=== PATIENT | male | born 1960 | race Caucasian/White ===

== ENCOUNTER 2020-07-02 07:34 | Outpatient (REF) | payer MEDICARE, SELFPAY ==
[2020-07-02 11:58] LABS: Alanine Aminotransferase 25 U/L (0-40); Albumin Level 4.5 g/dL (3.5-5.0); Alkaline Phosphatase 60 U/L (39-117); Anion Gap 16 (12-20); Aspartate Amino Transferase 27 U/L (5-37); Bilirubin Total 1.4 mg/dL (0.0-1.0); Blood Urea Nitrogen 16 mg/dL (9-16); Calcium 8.6 mg/dL (8.4-10.2); Carbon Dioxide 24 mmol/L (22-29); Chloride 103 mmol/L (96-108); Cholesterol 279 mg/dL; Estimated Glomerular Filt Rate > 60; Glucose Fasting 106 mg/dL (60-99); HDL Cholesterol 75 mg/dL; LDL Cholesterol Calculated 179 mg/dl; Potassium 4.5 mmol/l (3.3-5.1); Sodium 138 mmol/L (135-145); Total Protein 6.8 g/dL (6.5-8.0); Triglycerides 129 mg/dL
[2020-07-02 12:05] LABS: Prostate Specific Antigen Scr 0.69 ng/mL (<0.05-4.0); TSH reflex Free T4 2.83 mIU/mL (0.32-4.0)
== END 2020-07-02 07:35 | disposition home or self-care (01) ==
LOC: HO.HMGCLDS 07:34
PROVIDERS: PCP Nurse Practitioner Family; Visit Provider Nurse Practitioner Family
DX: E78.5 Hyperlipidemia, unspecified (principal); Z12.5 Encounter for screening for malignant neoplasm of prostate; R17 Unspecified jaundice
CPT/HCPCS: 80053; 80061; 84153; 84443

== ENCOUNTER 2020-09-26 10:11 | Outpatient (REF) | payer MEDICARE, MEDICAID, SELFPAY | END 2020-09-26 10:12 | disposition home or self-care (01) | LOC: HO.LAB 10:11 | PROVIDERS: Visit Provider Internal Medicine | DX: Z20.822 Contact with and (suspected) exposure to COVID-19 (principal) | CPT/HCPCS: 36415; C9803; U0003; U0005 ==

== ENCOUNTER 2024-10-19 12:20 | Outpatient (AMB) | payer OTHER, SELFPAY ==
--- NOTE | 2024-10-19 12:23 | A.OFFPC_ITS ---
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 Pt states that he has bot been seen for about 3 years. 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 History of Present Illness The patient is a 64-year-old male presenting with left wrist discomfort. Pain is reported to be ongoing and primarily located on the volar aspect of the wrist, exacerbated by activities that involve manual labor. The patient has a significant history of Dupuytren's contracture affecting both hands, with previous surgical interventions undertaken with only partial correction, as his digits, particularly bilaterally on digits three, four, and five, remain chiefly contracted. 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 Additionally, he reports a history of arthritis but denies having experienced recent falls or fractures affecting the wrist. He maintains a known history of dyslipidemia for which laboratory tests have been requisitioned during this visit. Despite medical advice, he expresses refusal for any colorectal screening. He currently consumes alcoholic beverages such as beer and bourbon, albeit not daily. Social History - Alcohol consumption is reported to be not daily, with a preference for beer or bourbon. Health Maintenance - Laboratory tests ordered for dyslipide magy Review of Systems - Musculoskeletal: Reports left wrist di scomfort - Musculoskeletal: Denies recent falls a nd wrist fractures Physical Exam General: Cooperative, healthy appearing, comfortable, no acute distress and well developed Orientation: Patient oriented x3 Limitations: No limitations Head: Normal to inspection Ears: Hearing grossly normal bilaterally Nose: Normal external nose present Face and sinus: Normal facial exam Eyes: Appearance normal, both eyes and all related structures Neck: Normal visual inspection and Yes full ROM Respiratory: Normal respiratory effort and able to speak in complete sentences. Clear to auscultation bilaterally Cardiovascular: Regular rate and rhythm. Normal S1 and S2 GI: Normal to inspection. Soft to palpation and nontender Skin: No rashes or lesions noted Neuro: Patient oriented x3 Extremities: Severe Dupuytren's contracture to bilateral hands, fingers. Fingers mostly contracted. no wrist pain with palpation, ulnar deviation/radial deviation, + radial pulses Results Plan To address the patient's reported left wrist discomfort, an X-ray of the area will be arranged to assess the potential for underlying fractures. The interplay of his Dupuytren's contracture and any compensatory wrist strain due to constrained finger mobility will be closely evaluated. Dyslipidemia will be further monitored via ordered laboratory tests. Progress and control of arthritis will be reviewed, ensuring past treatment regimens are adjusted as n ecessary. Despite detailed discussions on the necessity of colorectal cancer screening for health maintenance, the patient communicated refusal of such procedures. The patient was counseled on the impact of alcohol consumption. 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 Diagnostic imaging of the wrist through X-ray was recommended to evaluate for fractures. For his dyslipidemia, laboratory work was emphasized as part of ongoing management. I advocated for colorectal screenings; however, the patient declined, understanding the risks and benefits involved. Conversations concerning his alcohol consumption focused on moderation and lifestyle implications. Patient Instructions - Await scheduling and completion of a l eft wrist X-ray - Complete lab tests as ordered for dysl ipidemia - Engage in discussions on potential man agement adjustments for arthritis if necessary - Maintain moderation with alcohol consu mption - Return for follow-up consultations as needed - Adhere to prescribed management for ch ronic conditions and report any new symptoms or changes immediately [facility] Medical History Arthritis Immunization refused Colonoscopy refused ETOH abuse Dyslipidemia Erectile dysfunction Dupuytren's disease Surgical History History of eye surgery History of nasal surgery Family History Father Mental health disorder Mother No problems noted. Social History Housing: House Alcohol intake: current Alcohol intake frequency: a few times a week Patient Tobacco Use Status: Current someday Tobacco user Cigarettes Per Day: 3 Years Smoked: 20 years service: No Current occupational status: retired Cognitive needs: No Hearing needs: No Vision needs: Yes Questionnaire PHQ-9 Over the last 2 weeks, how often have you been bothered by any of the following problems? 1. Little interest or pleasure in doing things: not at all 2. Feeling down, depressed, or hopeless: not at all 3. Trouble falling or staying asleep, or sleeping too much: not at all 4. Feeling tired or having little energy: not at all 5. Poor appetite or overeating: not at all 6. Feeling bad about yourself - or that you are a failure or have let yourself or your family down: not at all 7. Trouble concentrating on things, such as reading the newspaper or watching television: not at all 8. Moving or speaking so slowly that other people could have noticed. Or the opposite - being so fidgety or restless that you have been moving around a lot more than usual: not at all 9. Thoughts that you would be better off or of hurting yourself in some way: not at all Total score: 0 Depression Screening Interpretation: Negative Depression Screening Done: Yes 68173 - PHQ-9 Billing: Yes Source: Developed by Drs. Adam Choi, Gauri Thomas, Román Sin and colleagues, with an educational kera from [employer]. Thrive Questionnaire Date Thrive assessed: 10/19/24 I am a: Parent/Caregiver What is your living situation today?: I have a steady place to live Within the past 12 months, did the food you bought not last and you didn't have the money to get more?: Never true Within the past 12 months, did you worry whether your food would run out before you got money to buy more?: Never true Do you have trouble paying for medicines?: I choose not to answer this question Do you have trouble getting transportation to medical appointments?: No Do you have trouble paying your heating and electricity bill?: I choose not to answer this question Do you have trouble taking care of your child, family member or friend?: No Do you have trouble with day-to-day activities such as bathing, preparing meals, shopping, managing finances, etc.?: No Are you currently unemployed and looking for a job?: No Are you interested in more education?: No Please select the resources that you would like help with: Care for elder or disabled Currently or been in a relationship where the following occur: I choose not to answer THRIVE Score: 0 AUDIT C Alcohol Use Questionnaire (AUDIT-C) 1. How often do you have a drink containing alcohol?: 2-4 times a month 2. How many drinks containing alcohol do you have on a typical day when you are drinking?: 1 or 2 3. How often do you have six or more drinks on one occasion?: Less than monthly Total Score: 3 DREW-7 AMB Questionnaire DREW-7 Date DREW - 7 assessed: 10/19/24 Feeling nervous, anxious, or on edge: 0 = Not at all Not being able to stop or control worryin = Not at all Worrying too much about different things: 0 = Not at all Trouble relaxin = Not at all Being so restless that it is hard to sit still: 0 = Not at all Becoming easily annoyed or irritable: 0 = Not at all Feeling afraid as if something awful might happen: 0 = Not at all Total DREW-7 score (0-4 normal; 5-9 mild; 10-14 moderate; 15-21 severe): 0 Source: Developed by Drs. Adam Choi, Gauri Thomas, Román Sin and colleagues, with an educational kera from [employer] DREW-7 Assessment Billing DREW-7 Assessment Tool: DREW-7 Assessment 19848 Physical exam (Primary Care) Vital Signs: Last Vital Signs Temp 97.7 F 10/19/24 12:24 Pulse 83 10/19/24 12:24 Resp 18 10/19/24 12:24 BP 126/86 10/19/24 12:24 Pulse Ox 95 10/19/24 12:24 Oxygen Delivery Method Room Air 10/19/24 12:24 BMI result Body Mass Index 24.9 Tobacco/Smoking Status: Tobacco use Status Tobacco use date assessed 10/19/24 10/19/24 12:32 Patient Tobacco Use Status Current someday Tobacco 10/19/24 12:32 PHQ-9: PHQ-9 Score PHQ-9: Total score 0 10/19/24 12:32 Depression Screening Interpretation: Negative Thrive Assessment: Date of Thrive Assessment Date Thrive assessed 10/19/24 10/19/24 12:32 Currently or been in a relationship where the following occur: I choose not to answer Coding Level of Care Code New Pt Level 3 (16792) Diagnoses Left wrist pain M25.532 Dyslipidemia E78.5 Screening PSA (prostate specific antigen) Z12.5 Additional Codes DREW-7 Assessment Billing - DREW-7 Assessment Tool: DREW-7 Assessment 14542 ([id number]) PHQ-9 - 61015 - PHQ-9 Billing: Yes ([id number]) Assessment & Plan Assessment & Plan (1) Left wrist pain: Code(s): M25.532 - Pain in left wrist Category: Medical (2) Dyslipidemia: Code(s): E78.5 - Hyperlipidemia, unspecified Category: Medical (3) Screening PSA (prostate specific antigen): Code(s): Z12.5 - Encounter for screening for malignant neoplasm of prostate Category: Medical Plan . Orders: Orders Complete Blood Count Auto Diff Today E78.5 - Hyperlipidemia, unspecified XR wrist LT 2V Today M25.532 - Pain in left wrist Comprehensive Roe. Panel Fast Today E78.5 - Hyperlipidemia, unspecified TSH reflex Free T4 Today E78.5 - Hyperlipidemia, unspecified UA CC w/rflx Micro + Cult Today E78.5 - Hyperlipidemia, unspecified Lipid Panel Today E78.5 - Hyperlipidemia, unspecified Prostate Specific Antigen Scr Today Z12.5 - Encounter for screening for m alignant neoplasm of prostate
[2024-10-19 12:24] VITALS: BP 126/86; PULSE 83; RESP 18; TEMP 36.5; O2SAT 95; BMI 24.9
--- OUTSIDE RECORDS SUMMARY | 2024-10-19 14:38 | XMS_ITS | Encounter Summary ---
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 Role Phone Unavailable Primary Care Provider Unavailabl e Encounter Details Date Type Department Care Team (Latest Contact Info) Description 07/21/2018 Abstract C CONVERSIONS Dental, Provider, DDS Social History Tobacco Use Types Packs/Day Years Used Date Smoking Tobacco: Never Assessed Sex and Gender Information Value Date Recorded Sex Assigned at Male 05/05/2022 10:17 AM EDT Legal Sex Male 10:17 AM EDT Gender Identity Male 05/05/2022 10:17 AM EDT Sexual Orientation Straight 05/05/2022 10 :17 AM EDT documented as of this encounter Plan of Treatment Not on file documented as of this encounter Visit Diagnoses Not on filedocumented in this encounter
--- OUTSIDE RECORDS SUMMARY | 2024-10-19 14:38 | XMS_ITS | Encounter Summary ---
Author Organization [email or web address] Address [address] [place] [address] [address] [place] [address] Care Team Providers Care Subassembly Supervisor Name Role Phone Unavailable Primary Care Provider Unavailabl e Encounter Details Date Type Department Care Team (Latest Contact Info) Description 07/27/2019 Abstract C CONVERSIONS Dental, Provider, DDS Social [...]
--- OUTSIDE RECORDS SUMMARY | 2024-10-19 14:38 | XMS_ITS | Encounter Summary ---
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
--- OUTSIDE RECORDS SUMMARY | 2024-10-19 14:38 | XMS_ITS | Clinical Summary ---
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 Role Phone Unavailable Primary Care Provider Unavailabl e Social History Tobacco Use Types Packs/Day Years Used Date Smoking Tobacco: Never Assessed Sex and Gender Information Value Date Recorded Sex Assigned at Male 05/05/2022 10:17 AM EDT Legal Sex Male 10:17 AM EDT Gender Identity Male 05/05/2022 10:17 AM EDT Sexual Orientation Straight 05/05/2022 10 :17 AM EDT Last Filed Vital Signs Vital Sign Reading Time Taken Comments Blood Pressure 122/72 01/21/2021 12:07 AM EDT Pulse 70 01/21/2021 12:07 AM EDT Temperature - - Respiratory Rate - - Oxygen Saturation - - Inhaled Oxygen Concentration - - Weight - - Height - - Body Mass Index - - Plan of Treatment Health Maintenance Due Date Last Done Comments CT Colonography 1960 Colonoscopy 1960 Colorectal Cancer Screening 1960 Depression Screening 1960 FIT DNA/Cologuard 1960 FIT 1960 FOBT 1960 Lipid Panel 1960 Sigmoidoscopy 1960 Alcohol/Substance Use Screening 1972 Tobacco Screening 1972 DTaP/Tdap/Td Vaccines (1 - Tdap) 10/16/1979 Pneumococcal Vaccine: 50+ Ye ars (1 of 1 - PCV) 2010 Zoster Vaccines (1 of 2) 2010 COVID-19 Vaccine ( - 2023-2 5 season) 2024 Influenza Vaccine (#1) 2024 RSV Patients and Pa tients Aged 60 years or older (1 - 1-dose 75+ series) 10/16/2035 HIB Vaccines Aged Out No longer eligi ble based on patient's age to complete this topic HPV Vaccines Aged Out No longer eligi ble based on patient's age to complete this topic Hepatitis A Vaccines Aged Out No long er eligible based on patient's age to complete this topic Hepatitis B Vaccines Aged Out No long er eligible based on patient's age to complete this topic IPV Vaccines Aged Out No longer eligi ble based on patient's age to complete this topic Meningococcal Vaccine Aged Out No abiodun todd eligible based on patient's age to complete this topic Pneumococcal Vaccine: Pediat rics (0 to 5 Years) and At-Risk Patients (6 to 49) Years) Aged Out No longer eligible b ased on patient's age to complete this topic RSV under 20 months Aged Out No longe r eligible based on patient's age to complete this topic Rotavirus Vaccines Aged Out No longer eligible based on patient's age to complete this topic
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
== END 2024-10-19 13:55 | disposition home or self-care (01) ==
LOC: HO.HMCC 12:21
PROVIDERS: PCP Nurse Practitioner Family; Visit Provider Nurse Practitioner Family
DX: M25.532 Pain in left wrist (principal); E78.5 Hyperlipidemia, unspecified; Z12.5 Encounter for screening for malignant neoplasm of prostate

== ENCOUNTER → 2024-10-19 12:20 | Outpatient (BNVA) | payer OTHER, SELFPAY | PROVIDERS: PCP Nurse Practitioner Family; Visit Provider Nurse Practitioner Family | DX: M25.532 Pain in left wrist (principal); E78.5 Hyperlipidemia, unspecified | CPT/HCPCS: 96127; 99202 ==